=== PATIENT | male | born 1980 | race Caucasian/White ===

== ENCOUNTER → 2018-12-31 | Outpatient (CLI) | payer BC ==
[~2018-12-31] MED LIST: A-CILLIN500 MG PO; AMOXICILLIN500 MG PO; AUGMENTIN 400 M1 CTB PO; AUGMENTIN 875 M1 TAB PO; BACTRIM DS 8001 TA1 PO; DAYPRO600 M1 PO; MEDROL DOSEPAK4 MG PO; MOTRIN800 MG PO; PEN-VK500 MG PO; ROBAXIN750 MG PO; TRAMADOL HCL50 MG PO; VICODIN 5/500 505 MG PO; ZANTAC150 MG PO; ZITHROMAX Z PA250 MG PO; ZOLOFT50 MG PO
== END ==
LOC: RAD 14:23
DX: S69.91XS Unspecified injury of right wrist, hand and finger(s), sequela (principal); F17.200 Nicotine dependence, unspecified, uncomplicated; K21.9 Gastro-esophageal reflux disease without esophagitis; M54.2 Cervicalgia; X58.XXXS Exposure to other specified factors, sequela

== ENCOUNTER 2019-07-07 19:28 | Emergency (ER) | payer BC, OTHER ==
[~2019-07-07] VITALS: Ht 162.5 cm; Wt 83.9 kg
[2019-07-07] MEDS ORDERED: Percocet 325 MG1 TAB PO (19:47)
== END 2019-07-07 21:33 | disposition home or self-care (01) ==
LOC: ED 19:28
DX: M79.652 Pain in left thigh (principal); M79.89 Other specified soft tissue disorders; F17.200 Nicotine dependence, unspecified, uncomplicated; Z88.1 Allergy status to other antibiotic agents

== ENCOUNTER → 2022-03-07 | Outpatient (CLI) | payer OTHER ==
[~2022-03-07] MED LIST changes: +Percocet 325 MG1 TAB PO
== END | disposition home or self-care (01) ==
LOC: CARD 01:48
PROVIDERS: ATTEND Physician Assistant
DX: I10 Essential (primary) hypertension (principal); F17.210 Nicotine dependence, cigarettes, uncomplicated; M79.601 Pain in right arm; R00.2 Palpitations

== ENCOUNTER 2022-11-13 21:04 | Emergency (ER) | payer OTHER ==
[~2022-11-13] VITALS: Ht 162.5 cm; Wt 89.8 kg
[2022-11-13] MEDS ORDERED: LIPITOR20 MG PO (21:30)
[2022-11-13] MEDS ORDERED: NORVASC10 MG PO (21:30)
[2022-11-13] MEDS ORDERED: AUGMENTIN XR 11 EACH PO (21:53)
== END 2022-11-13 22:07 | disposition home or self-care (01) ==
LOC: ED 21:04
DX: J02.9 Acute pharyngitis, unspecified (principal); F41.9 Anxiety disorder, unspecified; Z88.1 Allergy status to other antibiotic agents; Z98.890 Other specified postprocedural states; Z87.891 Personal history of nicotine dependence